=== PATIENT | female | born 1970 | race Asian ===

== ENCOUNTER 2018-08-11 21:05 | Emergency (ER) | payer OTHER ==
[~2018-08-11] VITALS: Ht 144.8 cm; Wt 56.7 kg
[2018-08-11 21:26] VITALS: BP 1401/58; TEMP 98.1
== END 2018-08-11 21:50 | disposition home or self-care (01) ==
LOC: ED 21:05
DX: H44.001 Unspecified purulent endophthalmitis, right eye (principal); Z97.0 Presence of artificial eye
CPT/HCPCS: 99281; 99282

== ENCOUNTER 2018-12-25 20:47 | Emergency (ER) | payer OTHER ==
[~2018-12-25] VITALS: Ht 144.8 cm; Wt 56.7 kg
[2018-12-25 21:52] LABS: PLATELET COUNT 170 K/uL (152-353)
[2018-12-25 22:03] LABS: POTASSIUM 4.5 mmol/L (3.6-5.2)
[2018-12-26 00:15] VITALS: BP 113/69; TEMP 97.9
== END 2018-12-26 00:15 | disposition home or self-care (01) ==
LOC: ED 20:47
PROVIDERS: Emergency Medicine
DX: E86.0 Dehydration (principal); J06.9 Acute upper respiratory infection, unspecified; W10.8XXA Fall (on) (from) other stairs and steps, initial encounter; Y92.89 Other specified places as the place of occurrence of the external cause
CPT/HCPCS: 36415; 80053; 83605; 85027; 87502; 96360; 99284

== ENCOUNTER 2022-07-18 18:20 | Outpatient (CLI) | payer OTHER ==
[2022-07-18 20:54] LABS: PLATELET COUNT 211 K/uL (152-353)
[2022-07-18 21:41] LABS: POTASSIUM 4.3 mmol/L (3.6-5.2)
== END 2022-07-18 19:05 | disposition home or self-care (01) ==
LOC: RAD 18:20
PROVIDERS: ATTEND Internal Medicine
DX: M19.041 Primary osteoarthritis, right hand (principal); Z79.899 Other long term (current) drug therapy
CPT/HCPCS: 36415; 80053; 80061; 82607; 82746; 84443; 85027